=== PATIENT | female | born 1960 | race African-American/Black ===

== ENCOUNTER 2018-05-21 06:53 | Emergency (ER) | payer OTHER ==
[2018-05-21 07:33] LABS: #Basophils 0.1 thou/uL (0.0-0.2); #Eosinphils 0.3 thou/uL (0.0-0.7); #Lymphocytes 1.8 thou/uL (1.20-3.40); #Monocytes 0.9 thou/uL (0.11-0.59); #Neutrophils 5.5 thou/uL (1.40-6.50); %Basophils 0.7 % (0.0-1.0); %Eosinophils 3.6 % (0.0-10.0); %Monocytes 10.8 % (0.0-10.0); %Neutrophils 63.9 % (42.0-75.0); Hemoglobin 14.2 g/dL (12.0-16.0); Mean Corpuscular HGB CONC 31.5 g/dL (32.0-36.0); Mean Corpuscular Hemoglobin 31.3 pg (27.0-31.0); Mean Corpuscular Volume 99.3 fL (78.0-98.0); Mean Platelet Volume 6.8 fL (7.4-10.4); Platelet Count 289 thou/uL (130-400); RBC Distribution Width 12.4 % (11.5-14.5); Red Blood Cell (RBC) Count 4.52 mill/uL (4.20-5.40); White Blood Cell (WBC) Count 8.6 thou/uL (4.8-10.8)
[2018-05-21] MEDS ORDERED: Albuterol Sulfate 2.5 mg/3 ml Neb ONE (07:42)
[2018-05-21 07:58] LABS: ALT (SGPT) 9 U/L (8-55); AST (SGOT) 17 U/L (5-34); Albumin 3.9 g/dL (3.5-5.0); Alkaline Phosphatase 61 U/L (40-150); Anion Gap 15 mmol/L (10-20); BUN (Urea Nitrogen) 6 mg/dL (9.8-20.1); Bilirubin, Total 0.7 mg/dL (0.2-1.2); Calc. Creatinine Clearance 0 mL/min (70-130); Calcium 9.5 mg/dL (7.8-10.44); Carbon Dioxide 22 mmol/L (22-29); Chloride 104 mmol/L (98-107); Estimated GFR-MDRD Greater than 90; Globulin 3.9 g/dL (2.4-3.5); Glucose 103 mg/dL (70-105); Potassium 3.7 mmol/L (3.5-5.1); Protein, Total 7.8 g/dL (6.0-8.3); Sodium 137 mmol/L (136-145)
[2018-05-21] MEDS ORDERED: Acetaminophen 500 MG TAB ONE (08:18)
[2018-05-21] MEDS ORDERED: Ondansetron PF 4 MG/2 ML Vial ONE (08:18)
--- NOTE | 2018-05-21 08:25 | RAD ---
CHEST 1 VIEW: HISTORY: Dyspnea. COMPARISON: 09/24/2016. FINDINGS: Cardiac silhouette is magnified by projection. Pulmonary vasculature is unremarkable. Lungs remain hyperinflated. Scarring at the left base is similar in appearance to the previous exam. No lobar co nsolidation or evidence of pneumothorax. traffic monitor specialist leads overlie the chest. IMPRESSION: Pulmonary hyperinflation and left basilar scarring appear stable. POS: [facility]
[2018-05-21] MEDS ORDERED: predniSONE 20 MG TAB ONE (09:34)
== END 2018-05-21 10:04 | disposition home or self-care (01) ==
LOC: ERS 06:53
DX: J44.9 Chronic obstructive pulmonary disease, unspecified (principal); Z71.6 Tobacco abuse counseling; G43.909 Migraine, unspecified, not intractable, without status migrainosus; F17.210 Nicotine dependence, cigarettes, uncomplicated; Z79.899 Other long term (current) drug therapy
CPT/HCPCS: 36415; 71045; 80053; 85025; 93005; 94640; 96374; 99406; J2405; J7506; J7611; J7620

== ENCOUNTER 2018-05-21 19:15 | Inpatient (IN) | payer OTHER ==
[~2018-05-21 19:15] MED LIST: ISOVUE-370 76%-LOCM 1 ML ONE
[2018-05-21 20:03] LABS: #Lymphocytes 0.7 thou/uL (1.20-3.40); #Monocytes 0.3 thou/uL (0.11-0.59); #Neutrophils 6.2 thou/uL (1.40-6.50); %Basophils 0.2 % (0.0-1.0); %Eosinophils 0.1 % (0.0-10.0); %Lymphocytes 9.6 % (21.0-51.0); %Monocytes 4.5 % (0.0-10.0); %Neutrophils 85.6 % (42.0-75.0); Hemoglobin 13.9 g/dL (12.0-16.0); Mean Corpuscular HGB CONC 33.1 g/dL (32.0-36.0); Mean Corpuscular Hemoglobin 32.3 pg (27.0-31.0); Mean Corpuscular Volume 97.3 fL (78.0-98.0); Mean Platelet Volume 7.4 fL (7.4-10.4); Platelet Count 308 thou/uL (130-400); RBC Distribution Width 12.4 % (11.5-14.5); White Blood Cell (WBC) Count 7.3 thou/uL (4.8-10.8)
[2018-05-21 20:14] LABS: ALT (SGPT) 11 U/L (8-55); AST (SGOT) 19 U/L (5-34); Alkaline Phosphatase 62 U/L (40-150); Anion Gap 20 mmol/L (10-20); BUN (Urea Nitrogen) 7 mg/dL (9.8-20.1); Bilirubin, Total 0.2 mg/dL (0.2-1.2); Calc. Creatinine Clearance 0 mL/min (70-130); Calcium 9.5 mg/dL (7.8-10.44); Carbon Dioxide 14 mmol/L (22-29); Chloride 108 mmol/L (98-107); Estimated GFR-MDRD 87; Globulin 4.1 g/dL (2.4-3.5); Glucose 184 mg/dL (70-105); Potassium 4.1 mmol/L (3.5-5.1); Protein, Total 8.1 g/dL (6.0-8.3); Sodium 138 mmol/L (136-145)
[2018-05-21 20:31] LABS: CKMB 1.4 ng/mL (0-6.6); Troponin I Less than 0.010 ng/mL (< 0.028)
--- NOTE | 2018-05-21 20:38 | RAD ---
PORTABLE CHEST: 05/21/18 HISTORY: Dyspnea. The lungs are clear. No infiltrate or vascular congestion. Heart size is normal. IMPRESSION: No acute abnormality. POS: [facility]
[2018-05-21 20:54] LABS: Actual Bicarbonate (HCO3a) 18.3 mEq/L (22-28); Analyzer IN Cardio ER; Base Excess (BEa) -6.3 mEq/L (-2.0 to +3.0); CO2 Tension 33.4 mmHg (35.0-45.0); Calcium, Ionized 1.16 mmol/L (1.12-1.30); Carboxyhemoglobin (COHb) 2.5 gm% (0.0-3.0); Hemoglobin (Hb) 13.1 g/dL (12.0-16.0); O2 Tension (PaO2) 87.1 mmHg (80.0-100.0); pH, Arterial 7.36 (7.35-7.45)
--- NOTE | 2018-05-21 21:02 | CT ---
CTA CHEST WITH CONTRAST: 05/21/18 Multiple axial tomograms were obtained through the chest following pulmonary angio protocol with mult iplanar reconstructions and 3D postprocessing. INDICATION: Shortness of breath. FINDINGS: The pulmonary arteries show adequate enhancement. No evidence of pulmonary embolus identified. Thorac ic aorta unremarkable. Lung cruz appear clear. There is mild atelectasis in the posterior left lung base. Volume changes of COPD and early bullous changes in the upper lung cruz. Nonspecific hilar l ymph nodes. Images through upper abdomen unremarkable. IMPRESSION: 1. No evidence of pulmonary embolus. 2. Chronic lung parenchymal changes without evidence of focal infiltrate. POS: [facility]
[2018-05-21] MEDS ORDERED: Ondansetron ODT 4 MG TAB ONE (21:22)
[2018-05-21] MEDS ORDERED: Acetaminophen 500 MG TAB ONE (21:22)
[2018-05-21 21:38] LABS: Puncture Site LBA
[2018-05-21] MEDS ORDERED: Senokot S 8.6-50 MG TAB PO PRN (22:43)
[2018-05-21] MEDS ORDERED: Acetaminophen 325 MG TAB PO PRN (22:43)
[2018-05-21] MEDS ORDERED: Vancomycin HCl 1.5 GM in Premix Bag 1 BAG IVPB ONE (22:45)
[2018-05-21] MEDS ORDERED: Vancomycin HCl 1.5 GM in Sodium Chloride 0.9% 250 ML 300 ML IVPB SCH (23:00)
[2018-05-21] MEDS: Sodium Chloride 0.9% 1,000 ML IV SCH (23:44)
--- NOTE | 2018-05-22 00:07 | HP ---
CHIEF COMPLAINT: Shortness of breath. HISTORY OF PRESENT ILLNESS: Patient is a very pleasant 57-year-old female who works in a nursing danay e who presents to the hospital with complaints of shortness of breath. Patient stated that her short ness of breath started about 4 days ago. She initially started with some nasal congestion with some cough; however, today she went to work, checked her oxygen saturations. She was 88% on room air and had a temperature of 102.0. Patient then came into the ER initially, she was given some steroids and also was given some antibiotics and was discharged home. Patient stated that, however, when she got home, she started having chills and started feeling unwell and worsening shortness of breath just by walking from the house to the car, so she came into the hospital for further evaluation. Patient di d undergo a CTA, which was negative for PE, there were just some chronic lung parenchymal changes wit hout any local infiltrates. PAST MEDICAL HISTORY: She has a history of asthma, no diagnosis of COPD. Patient has never had a PF T done. She states that she also has a history of migraines. PAST SURGICAL HISTORY: 1. Patient has had a hysterectomy. 2. Thyroidectomy 3. Appendectomy. 4. Left partial breast mastectomy. SOCIAL HISTORY: Patient denies any alcohol or drug use. She smokes 4 cigarettes a day. Prior to at, she used to smoke a pack a day. Patient has not smoked for the past couple of days. Patient is a FULL CODE. FAMILY HISTORY: No history of heart disease or cancer. REVIEW OF SYSTEMS: All negative except for the ones mentioned above in the HPI. MEDICATIONS: She only takes DuoNebs four or five times a day and also takes rescue inhaler, which is Ventolin. ALLERGIES: She has got allergic to IMITREX. PHYSICAL EXAMINATION. VITAL SIGNS: Temperature was 98.8. She was 96% on 2 liters. Heart rate was in the 110s, blood pres sure was 98/60. GENERAL: She is awake, alert, oriented x3, does not appear in any distress. HEENT: Normocephalic, atraumatic. NECK: No lymphadenopathy noted. CARDIOVASCULAR: S1, S2 present. No murmurs, rubs, or gallops. EXTREMITIES: She has got mild rhonchi all over and mild expiratory wheezing all over. LABORATORY DATA: As of the following: WBC of 7.3, hemoglobin of 13.9, hematocrit 41.8, platelets of 308. Chemistry: Sodium of 138, potassium of 4.1, BUN of 7, creatinine of 0.82. LFTs are normal. Her troponin x1 was negative. She did have a CTA, which was negative for PE. ASSESSMENT AND PLAN: Patient is a very pleasant 57-year-old female who presents to the hospital with complaints of shortness of breath. 1. Acute hypoxemic respiratory failure most likely secondary to possible chronic obstructive pulmona ry disease exacerbation. We will start patient on Solu-Medrol. We will also start patient on some D uoNebs. We will give patient some IV antibiotics. I will broaden her IV antibiotics and add vancomy cecilio, since she works in a [employer]. Patient also has been hypotensive and also she is being resu scitated with fluids. We will continue to monitor. We will also add some steroids as I mentioned minal velazquez. Patient will need PFTs as an outpatient. She has got very hyperinflated lungs. Patient stat es that she has never really had a PFT as outpatient. She will also need a prescribed inhaler on dis charge that she takes daily not just a rescue inhaler. 2. Mild non-anion gap metabolic acidosis. We will continue to monitor. 3. Deep venous thrombosis prophylaxis. We will put patient on sequential compression devices.
[2018-05-22 00:17] VITALS: BMI 18.6
[2018-05-22 05:04] LABS: #Lymphocytes 0.7 thou/uL (1.20-3.40); #Monocytes 0.2 thou/uL (0.11-0.59); #Neutrophils 7.3 thou/uL (1.40-6.50); %Basophils 0.2 % (0.0-1.0); %Eosinophils 0.2 % (0.0-10.0); %Lymphocytes 8.3 % (21.0-51.0); %Monocytes 2.6 % (0.0-10.0); %Neutrophils 88.7 % (42.0-75.0); Hemoglobin 12.3 g/dL (12.0-16.0); Mean Corpuscular HGB CONC 31.9 g/dL (32.0-36.0); Mean Corpuscular Hemoglobin 31.5 pg (27.0-31.0); Mean Corpuscular Volume 98.5 fL (78.0-98.0); Mean Platelet Volume 7.3 fL (7.4-10.4); Platelet Count 297 thou/uL (130-400); RBC Distribution Width 12.4 % (11.5-14.5); Red Blood Cell (RBC) Count 3.92 mill/uL (4.20-5.40); White Blood Cell (WBC) Count 8.2 thou/uL (4.8-10.8)
[2018-05-22 05:18] LABS: Anion Gap 11 mmol/L (10-20); BUN (Urea Nitrogen) 9 mg/dL (9.8-20.1); Calc. Creatinine Clearance 69 mL/min (70-130); Calcium 8.5 mg/dL (7.8-10.44); Carbon Dioxide 19 mmol/L (22-29); Chloride 110 mmol/L (98-107); Estimated GFR-MDRD Greater than 90; Glucose 137 mg/dL (70-105); Potassium 4.3 mmol/L (3.5-5.1); Sodium 136 mmol/L (136-145)
[2018-05-22] MEDS: Sodium Chloride 0.9% 1,000 ML IV SCH ×3 (08:26→20:58)
[2018-05-22] MEDS: Heparin 5,000 UNITS/ML VIAL SC SCH ×3 (08:26→20:57)
[2018-05-22] MEDS: guaiFENesin ER 600 MG TAB PO SCH ×2 (08:26→20:57)
[2018-05-22] MEDS: Ondansetron PF 4 MG/2 ML Vial SLOW IVP PRN ×2 (10:15→18:49)
--- NOTE | 2018-05-22 15:24 | PDOC.PN ---
- Subjective Encounter Start Date: 05/22/18 Encounter Start Time: 10:00 (10) Pt seen for followup re: acute hypoxic respiratory failure. Reports cough, sputum. - Objective Resuscitation Status: Resuscitation Status FULL:Full Resuscitation MAR Reviewed: Yes Vital Signs & Weight: Vital Signs (12 hours) Temp Pulse Resp BP Pulse Ox 05/22/18 13:48 84 16 95 05/22/18 11:42 98.2 F 86 20 131/69 97 05/22/18 10:24 83 16 96 05/22/18 08:00 98 05/22/18 07:29 97.8 F 70 20 128/73 98 05/22/18 06:39 65 18 95 05/22/18 04:00 98.0 F 76 16 128/74 97 Weight Weight 105 lb I&O: 05/21/18 05/22/18 05/23/18 06:59 06:59 06:59 Intake Total 1800 Balance 1800 Result Diagrams: 05/22/18 04:21 05/22/18 04:21 Additional Labs: Labs reviewed by me Phys Exam - Physical Examination Constitutional: NAD HEENT: moist MMs, sclera anicteric, oral pharynx no lesions, 2+ tonsils Neck: no nodes, no JVD, supple, full ROM Respiratory: no rales, no rhonchi, wheezing present Cardiovascular: RRR, no rub S1, S2 Gastrointestinal: soft, non-tender, no distention, positive bowel sounds Neurological: moves all 4 limbs Psychiatric: normal affect, A&O x 3 Dx/Plan (1) Acute respiratory failure with hypoxia Code(s): J96.01 - ACUTE RESPIRATORY FAILURE WITH HYPOXIA Status: Acute Comment: secondary to asthma vs COPD exacerbation vs reactive airways precipitated by viral infection. Pt was never diagnosed with COPD. Continue oxygen, steroids, bronchodilators and antibiotics. (2) Tobacco abuse Code(s): Z72.0 - TOBACCO USE Status: Chronic Comment: pt has been counseled re: tobacco abuse. - Plan continue antibiotics * . Review of Systems - Review of Systems Constitutional: weakness. negative: fever, chills, sweats, malaise Respiratory: Cough, SOB with Excertion, Sputum. negative: Dry, Shortness of Breath, Hemoptysis, Pleuritic Pain, Wheezing Cardiovascular: negative: chest pain, palpitations, orthopnea, paroxysmal nocturnal dyspnea, edema, light headedness Gastrointestinal: negative: Nausea, Vomiting, Abdominal Pain, Diarrhea, Constipation, Melena, Hematochezia Genitourinary: negative: Dysuria, Frequency, Incontinence, Hematuria, Retention Skin: negative: Rash, Lesions, Jasmeet, Bruising - Medications/Allergies Allergies/Adverse Reactions: Allergies Allergy/AdvReac Type Severity Reaction Status Date / Time sumatriptan [From Imitrex] Allergy Mild Hives Verified 05/21/18 23:20 Medications: Current Medications Acetaminophen (Tylenol) 650 mg PO Q4H PRN PRN Reason: Headache/Fever/Mild Pain (1-3) Last Admin: 05/21/18 23:46 Dose: 650 mg Acetaminophen/Codeine Phosphate (Tylenol #3) 1 tab PO Q6H PRN PRN Reason: Pain 4-6 Albuterol/Ipratropium (Duoneb) 3 ml NEB [id number] [facility] Last Admin: 05/22/18 13:48 Dose: 3 ml Benzonatate (Tessalon) 100 mg PO TIDPRN PRN PRN Reason: Cough Guaifenesin (Mucinex) 600 mg PO Q12HR [facility] Last Admin: 05/22/18 08:26 Dose: 600 mg Heparin Sodium (Porcine) (Heparin) 5,000 units SC TID [facility] Last Admin: 05/22/18 14:27 Dose: 5,000 units Sodium Chloride (Normal Saline 0.9%) 1,000 mls @ 100 mls/hr IV .Q10H [facility] Last Admin: 05/22/18 14:26 Dose: 1,000 mls Levofloxacin 500 mg/ Device 100 mls @ 100 mls/hr IVPB Q24HR [facility] Last Admin: 05/21/18 23:44 Dose: 100 mls Methylprednisolone Sodium Succinate (Solu-Medrol) 40 mg IVP DAILY [facility] Last Admin: 05/22/18 08:26 Dose: 40 mg Ondansetron HCl (Zofran) 4 mg SLOW IVP Q6H PRN PRN Reason: Nausea/Vomiting Last Admin: 05/22/18 10:15 Dose: 4 mg Senna/Docusate Sodium (Senokot S) 2 tab PO BIDPRN PRN PRN Reason: Constipation
[2018-05-22] MEDS: Acetaminophen/Codeine 30-300mg Tablet PO PRN ×2 (15:30→22:12)
[2018-05-22] MEDS: Mometasone/Formoterol 120 PUFF INHALER INH SCH (18:44)
[2018-05-22] MEDS: Montelukast Sodium 10 mg Tablet PO SCH (20:57)
[2018-05-22] MEDS: Benzonatate 100 MG CAP PO PRN (21:03)
[2018-05-23] MEDS: Sodium Chloride 0.9% 1,000 ML IV SCH ×3 (01:50→22:39)
[2018-05-23] MEDS: Mometasone/Formoterol 120 PUFF INHALER INH SCH ×2 (06:17→18:13)
[2018-05-23] MEDS: Ondansetron PF 4 MG/2 ML Vial SLOW IVP PRN ×2 (06:36→15:16)
[2018-05-23] MEDS: Acetaminophen/Codeine 30-300mg Tablet PO PRN ×3 (06:36→22:43)
[2018-05-23] MEDS: Montelukast Sodium 10 mg Tablet PO SCH ×2 (09:00→20:03)
[2018-05-23] MEDS: Heparin 5,000 UNITS/ML VIAL SC SCH ×3 (09:00→20:04)
[2018-05-23] MEDS: guaiFENesin ER 600 MG TAB PO SCH ×2 (09:00→20:04)
[2018-05-23 09:22] LABS: #Basophils 0.1 thou/uL (0.0-0.2); #Eosinphils 0.1 thou/uL (0.0-0.7); #Lymphocytes 2.9 thou/uL (1.20-3.40); #Monocytes 0.7 thou/uL (0.11-0.59); #Neutrophils 6.8 thou/uL (1.40-6.50); %Basophils 0.8 % (0.0-1.0); %Eosinophils 1.2 % (0.0-10.0); %Lymphocytes 27.2 % (21.0-51.0); %Monocytes 6.3 % (0.0-10.0); %Neutrophils 64.5 % (42.0-75.0); Hemoglobin 12.3 g/dL (12.0-16.0); Mean Corpuscular HGB CONC 31.7 g/dL (32.0-36.0); Mean Corpuscular Hemoglobin 31.3 pg (27.0-31.0); Mean Corpuscular Volume 98.8 fL (78.0-98.0); Mean Platelet Volume 6.8 fL (7.4-10.4); Platelet Count 307 thou/uL (130-400); RBC Distribution Width 12.4 % (11.5-14.5); Red Blood Cell (RBC) Count 3.93 mill/uL (4.20-5.40); White Blood Cell (WBC) Count 10.5 thou/uL (4.8-10.8)
[2018-05-23 09:41] LABS: Anion Gap 10 mmol/L (10-20); BUN (Urea Nitrogen) 5 mg/dL (9.8-20.1); Calc. Creatinine Clearance 64 mL/min (70-130); Calcium 8.1 mg/dL (7.8-10.44); Carbon Dioxide 25 mmol/L (22-29); Chloride 112 mmol/L (98-107); Estimated GFR-MDRD Greater than 90; Glucose 94 mg/dL (70-105); Sodium 144 mmol/L (136-145)
--- NOTE | 2018-05-23 12:56 | PDOC.PN ---
- Subjective Encounter Start Date: 05/23/18 Encounter Start Time: 09:00 Pt seen for followup re: acute hypoxic respiratory failure. Still coughing, no sputum. - Objective Resuscitation Status: Resuscitation Status FULL:Full Resuscitation MAR Reviewed: Yes Vital Signs & Weight: Vital Signs (12 hours) Temp Pulse Resp BP BP Pulse Ox 05/23/18 09:33 83 16 95 05/23/18 08:00 95 05/23/18 07:17 98 F 84 19 138/85 92 L 05/23/18 06:17 74 18 95 05/23/18 06:15 74 18 95 05/23/18 04:00 98.1 F 74 20 116/78 92 L 05/23/18 02:29 66 16 95 Weight Weight 105 lb I&O: 05/22/18 05/23/18 05/24/18 06:59 06:59 06:59 Intake Total 1800 2079 Output Total 30 Balance 1800 2049 Result Diagrams: 05/23/18 09:07 05/23/18 09:07 Additional Labs: Labs reviewed by me Phys Exam - Physical Examination Constitutional: NAD HEENT: moist MMs, sclera anicteric, oral pharynx no lesions, 2+ tonsils Neck: no nodes, no JVD, supple, full ROM Respiratory: no rales, no rhonchi, wheezing present Cardiovascular: RRR, no rub Gastrointestinal: soft, non-tender, no distention, positive bowel sounds Neurological: moves all 4 limbs Psychiatric: normal affect, A&O x 3 Dx/Plan (1) Acute respiratory failure with hypoxia Code(s): J96.01 - ACUTE RESPIRATORY FAILURE WITH HYPOXIA Status: Acute Comment: secondary to reactive airways precipitated by rhinovirus infection. Continue oxygen, steroids, bronchodilators and antibiotics. (2) Hypokalemia Code(s): E87.6 - HYPOKALEMIA Status: Acute Comment: replace potassium (3) Tobacco abuse Code(s): Z72.0 - TOBACCO USE Status: Chronic - Plan * . Review of Systems - Review of Systems Constitutional: weakness. negative: fever, chills, sweats, malaise Respiratory: Cough, Dry, Wheezing. negative: Shortness of Breath, Hemoptysis, SOB with Excertion, Pleuritic Pain, Sputum Cardiovascular: negative: chest pain, palpitations, orthopnea, paroxysmal nocturnal dyspnea, edema, light headedness Gastrointestinal: negative: Nausea, Vomiting, Abdominal Pain, Diarrhea, Constipation, Melena, Hematochezia Genitourinary: negative: Dysuria, Frequency, Incontinence, Hematuria, Retention Skin: negative: Rash, Lesions, Jasmeet, Bruising - Medications/Allergies Allergies/Adverse Reactions: Allergies Allergy/AdvReac Type Severity Reaction Status Date / Time sumatriptan [From Imitrex] Allergy Mild Hives Verified 05/21/18 23:20 cucumber Allergy Hives Verified 05/23/18 12:58 Medications: Current Medications Acetaminophen (Tylenol) 650 mg PO Q4H PRN PRN Reason: Headache/Fever/Mild Pain (1-3) Last Admin: 05/21/18 23:46 Dose: 650 mg Acetaminophen/Codeine Phosphate (Tylenol #3) 1 tab PO Q6H PRN PRN Reason: Pain 4-6 Last Admin: 05/23/18 06:36 Dose: 1 tab Albuterol/Ipratropium (Duoneb) 3 ml NEB [id number] [facility] Last Admin: 05/23/18 09:33 Dose: 3 ml Benzonatate (Tessalon) 100 mg PO TIDPRN PRN PRN Reason: Cough Last Admin: 05/22/18 21:03 Dose: 100 mg Guaifenesin (Mucinex) 600 mg PO Q12HR [facility] Last Admin: 05/23/18 09:00 Dose: 600 mg Heparin Sodium (Porcine) (Heparin) 5,000 units SC TID [facility] Last Admin: 05/23/18 09:00 Dose: 5,000 units Sodium Chloride (Normal Saline 0.9%) 1,000 mls @ 100 mls/hr IV .Q10H [facility] Last Admin: 05/23/18 01:50 Dose: 1,000 mls Levofloxacin 500 mg/ Device 100 mls @ 100 mls/hr IVPB Q24HR [facility] Last Admin: 05/22/18 22:12 Dose: 100 mls Methylprednisolone Sodium Succinate (Solu-Medrol) 40 mg IVP DAILY [facility] Last Admin: 05/23/18 09:00 Dose: 40 mg Mometasone Furoate/Formoterol Fumar (Dulera 200 Mcg/5 Mcg Inhaler) 2 puff INH BID-RT [facility] Last Admin: 05/23/18 06:17 Dose: 2 puff Montelukast Sodium (Singulair) 10 mg PO BID [facility] Last Admin: 05/23/18 09:00 Dose: 10 mg Ondansetron HCl (Zofran) 4 mg SLOW IVP Q6H PRN PRN Reason: Nausea/Vomiting Last Admin: 05/23/18 06:36 Dose: 4 mg Senna/Docusate Sodium (Senokot S) 2 tab PO BIDPRN PRN PRN Reason: Constipation
[2018-05-23] MEDS: Benzonatate 100 MG CAP PO PRN (22:43)
[2018-05-24 06:33] LABS: #Basophils 0.1 thou/uL (0.0-0.2); #Eosinphils 0.1 thou/uL (0.0-0.7); #Lymphocytes 3.4 thou/uL (1.20-3.40); #Monocytes 0.7 thou/uL (0.11-0.59); %Basophils 1.2 % (0.0-1.0); %Eosinophils 0.9 % (0.0-10.0); %Lymphocytes 32.7 % (21.0-51.0); %Monocytes 6.8 % (0.0-10.0); %Neutrophils 58.4 % (42.0-75.0); Hemoglobin 11.6 g/dL (12.0-16.0); Mean Corpuscular HGB CONC 32.6 g/dL (32.0-36.0); Mean Corpuscular Hemoglobin 31.9 pg (27.0-31.0); Mean Corpuscular Volume 97.8 fL (78.0-98.0); Mean Platelet Volume 7.5 fL (7.4-10.4); Platelet Count 312 thou/uL (130-400); RBC Distribution Width 12.3 % (11.5-14.5); Red Blood Cell (RBC) Count 3.64 mill/uL (4.20-5.40); White Blood Cell (WBC) Count 10.3 thou/uL (4.8-10.8)
[2018-05-24 06:46] LABS: Anion Gap 9 mmol/L (10-20); BUN (Urea Nitrogen) 6 mg/dL (9.8-20.1); Calc. Creatinine Clearance 67 mL/min (70-130); Calcium 8.4 mg/dL (7.8-10.44); Carbon Dioxide 24 mmol/L (22-29); Chloride 111 mmol/L (98-107); Estimated GFR-MDRD Greater than 90; Glucose 85 mg/dL (70-105); Potassium 3.4 mmol/L (3.5-5.1); Sodium 141 mmol/L (136-145)
[2018-05-24] MEDS: Mometasone/Formoterol 120 PUFF INHALER INH SCH ×2 (07:24→18:47)
[2018-05-24] MEDS: guaiFENesin ER 600 MG TAB PO SCH ×2 (08:42→20:04)
[2018-05-24] MEDS: Montelukast Sodium 10 mg Tablet PO SCH ×2 (08:42→20:04)
[2018-05-24] MEDS: Acetaminophen/Codeine 30-300mg Tablet PO PRN ×3 (08:42→23:53)
[2018-05-24] MEDS: Heparin 5,000 UNITS/ML VIAL SC SCH ×3 (08:42→20:04)
[2018-05-24] MEDS ORDERED: Potassium Chloride 20 MEQ TAB PO SCH (09:15)
[2018-05-24] MEDS: Sodium Chloride 0.9% 1,000 ML IV SCH ×3 (10:14→22:34)
[2018-05-24] MEDS: Ondansetron PF 4 MG/2 ML Vial SLOW IVP PRN (13:17)
--- NOTE | 2018-05-24 14:06 | PDOC.PN ---
- Subjective Encounter Start Date: 05/24/18 Encounter Start Time: 09:20 Pt seen for followup re: acute hypoxic respiratory failure. Feels better. Cough+. No fevers - Objective Resuscitation Status: Resuscitation Status FULL:Full Resuscitation Vital Signs & Weight: Vital Signs (12 hours) Temp Pulse Resp BP Pulse Ox 05/24/18 13:40 69 16 93 L 05/24/18 10:09 64 16 92 L 05/24/18 08:00 92 L 05/24/18 07:30 97.7 F 64 20 143/84 H 05/24/18 07:24 76 16 94 L 05/24/18 07:21 76 18 94 L Weight Admit Weight 105 lb Weight 105 lb I&O: 05/23/18 05/24/18 05/25/18 06:59 06:59 06:59 Intake Total 2079 Output Total Balance 2049 Result Diagrams: 05/25/18 04:45 05/25/18 04:45 Phys Exam - Physical Examination Constitutional: NAD HEENT: moist MMs Neck: supple Respiratory: wheezing present Cardiovascular: RRR Gastrointestinal: soft Neurological: moves all 4 limbs Psychiatric: normal affect Dx/Plan (1) Acute respiratory failure with hypoxia Code(s): J96.01 - ACUTE RESPIRATORY FAILURE WITH HYPOXIA Status: Acute Comment: Continue oxygen, steroids, bronchodilators and antibiotics. (2) Hypokalemia Code(s): E87.6 - HYPOKALEMIA Status: Acute Comment: replace potassium (3) Tobacco abuse Code(s): Z72.0 - TOBACCO USE Status: Chronic Comment: counseled re: tobacco cessation - Plan * . Review of Systems - Review of Systems Constitutional: negative: fever, chills, sweats, weakness, malaise Respiratory: Cough, Dry, Wheezing. negative: Shortness of Breath, Hemoptysis, SOB with Excertion, Pleuritic Pain, Sputum - Medications/Allergies Allergies/Adverse Reactions: Allergies Allergy/AdvReac Type Severity Reaction Status Date / Time sumatriptan [From Imitrex] Allergy Mild Hives Verified 05/21/18 23:20 cucumber Allergy Hives Verified 05/23/18 12:58 Medications: Current Medications Acetaminophen (Tylenol) 650 mg PO Q4H PRN PRN Reason: Headache/Fever/Mild Pain (1-3) Last Admin: 05/21/18 23:46 Dose: 650 mg Acetaminophen/Codeine Phosphate (Tylenol #3) 1 tab PO Q6H PRN PRN Reason: Pain 4-6 Last Admin: 05/24/18 08:42 Dose: 1 tab Albuterol/Ipratropium (Duoneb) 3 ml NEB [id number] [facility] Last Admin: 05/24/18 13:40 Dose: 3 ml Benzonatate (Tessalon) 100 mg PO TIDPRN PRN PRN Reason: Cough Last Admin: 05/23/18 22:43 Dose: 100 mg Guaifenesin (Mucinex) 600 mg PO Q12HR [facility] Last Admin: 05/24/18 08:42 Dose: 600 mg Heparin Sodium (Porcine) (Heparin) 5,000 units SC TID [facility] Last Admin: 05/24/18 08:42 Dose: 5,000 units Sodium Chloride (Normal Saline 0.9%) 1,000 mls @ 100 mls/hr IV .Q10H [facility] Last Admin: 05/24/18 13:15 Dose: Not Given Levofloxacin 500 mg/ Device 100 mls @ 100 mls/hr IVPB Q24HR [facility] Last Admin: 05/23/18 22:40 Dose: 100 mls Methylprednisolone Sodium Succinate (Solu-Medrol) 40 mg IVP DAILY [facility] Last Admin: 05/24/18 08:42 Dose: 40 mg Mometasone Furoate/Formoterol Fumar (Dulera 200 Mcg/5 Mcg Inhaler) 2 puff INH BID-RT [facility] Last Admin: 05/24/18 07:24 Dose: 2 puff Montelukast Sodium (Singulair) 10 mg PO BID [facility] Last Admin: 05/24/18 08:42 Dose: 10 mg Ondansetron HCl (Zofran) 4 mg SLOW IVP Q6H PRN PRN Reason: Nausea/Vomiting Last Admin: 05/24/18 13:17 Dose: 4 mg Senna/Docusate Sodium (Senokot S) 2 tab PO BIDPRN PRN PRN Reason: Constipation
[2018-05-24] MEDS: Benzonatate 100 MG CAP PO PRN (23:53)
[2018-05-25 05:20] LABS: #Eosinphils 0.1 thou/uL (0.0-0.7); #Monocytes 0.9 thou/uL (0.11-0.59); #Neutrophils 5.2 thou/uL (1.40-6.50); %Eosinophils 1.3 % (0.0-10.0); %Lymphocytes 38.9 % (21.0-51.0); %Monocytes 8.4 % (0.0-10.0); %Neutrophils 51.3 % (42.0-75.0); Hemoglobin 12.3 g/dL (12.0-16.0); Mean Corpuscular HGB CONC 33.1 g/dL (32.0-36.0); Mean Corpuscular Hemoglobin 32.4 pg (27.0-31.0); Mean Corpuscular Volume 97.9 fL (78.0-98.0); Mean Platelet Volume 6.9 fL (7.4-10.4); Platelet Count 332 thou/uL (130-400); RBC Distribution Width 12.3 % (11.5-14.5); Red Blood Cell (RBC) Count 3.78 mill/uL (4.20-5.40); White Blood Cell (WBC) Count 10.2 thou/uL (4.8-10.8)
[2018-05-25 05:34] LABS: Anion Gap 12 mmol/L (10-20); BUN (Urea Nitrogen) 6 mg/dL (9.8-20.1); Calc. Creatinine Clearance 63 mL/min (70-130); Calcium 8.6 mg/dL (7.8-10.44); Carbon Dioxide 23 mmol/L (22-29); Chloride 110 mmol/L (98-107); Estimated GFR-MDRD Greater than 90; Glucose 95 mg/dL (70-105); Potassium 3.6 mmol/L (3.5-5.1); Sodium 141 mmol/L (136-145)
[2018-05-25] MEDS: Mometasone/Formoterol 120 PUFF INHALER INH SCH (06:04)
[2018-05-25] MEDS: Sodium Chloride 0.9% 1,000 ML IV SCH (08:43)
[2018-05-25] MEDS: guaiFENesin ER 600 MG TAB PO SCH (08:44)
[2018-05-25] MEDS: Heparin 5,000 UNITS/ML VIAL SC SCH ×2 (08:44→15:39)
[2018-05-25] MEDS: Acetaminophen/Codeine 30-300mg Tablet PO PRN (08:44)
[2018-05-25] MEDS: Montelukast Sodium 10 mg Tablet PO SCH (08:44)
[2018-05-25] MEDS: Ondansetron PF 4 MG/2 ML Vial SLOW IVP PRN (08:45)
[2018-05-25 15:34] VITALS: BP 117/71; TEMP 98.6
--- NOTE | 2018-05-25 22:27 | DIS ---
PRIMARY CARE PROVIDER: Bhargavi Aparicio M.D. DATE OF ADMISSION: 05/21/2018 DATE OF DISCHARGE: 05/25/2018 DISCHARGE DIAGNOSES: 1. Acute hypoxic respiratory failure. 2. Rhinovirus infection. 3. Reactive airways disease. 4. Hypokalemia. CONDITION OF PATIENT ON THE DAY OF DISCHARGE: Stable. I assessed Ms. Boston on the day of discharge. She denies any chest pain or shortness of breath. Vital signs are stable. S1 and S2 are heard, re gular. Lungs are clear to auscultation bilaterally. DISCHARGE MEDICATIONS: Medrol Dosepak, Advair Diskus 250/50 one puff 2 times a day, DuoNebs 3 mL belkis ry 6 hours as needed, Singulair 10 mg 2 times a day, levofloxacin 500 mg daily for 5 more days. HOSPITAL COURSE: Ms. Boston is a pleasant 57-year-old lady, who was admitted to [facility] on 05/21/2018. Please refer to Dr. Palomares's history and physical note dated 05/21/2018 for further details. She was started on antibiotics for suspected upper respiratory tract infection. She was found to have rhinovirus infection on the NAAT panel. She improved with oxygen, steroids, bronchodilators and antibiotics. She is being discharged home in a stable condition. She has been a dvised to return to work on 05/29/2018 as tolerated. On the day of discharge, she has sodium 141, potassium 3.6, creatinine 0.75, white count 10,200, hemo globin 12.3, and platelet count 332,000. Many thanks for allowing me to participate in your patient's care. Please feel free to contact me wi th any questions or concerns. DISCHARGE DESTINATION: Home. TOTAL AMOUNT OF TIME SPENT COORDINATING THIS DISCHARGE: 33 minutes.
== END 2018-05-25 15:01 | disposition home or self-care (01) | DRG 189 ==
LOC: ERS 19:15 → T4-B 21:14
PROVIDERS: ADMIT Internal Medicine; ATTEND Internal Medicine
DX: J96.01 Acute respiratory failure with hypoxia (principal); J44.1 Chronic obstructive pulmonary disease with (acute) exacerbation; E87.2 Acidosis; J45.909 Unspecified asthma, uncomplicated; Z90.12 Acquired absence of left breast and nipple; F17.210 Nicotine dependence, cigarettes, uncomplicated; E89.0 Postprocedural hypothyroidism; B97.89 Other viral agents as the cause of diseases classified elsewhere; J06.9 Acute upper respiratory infection, unspecified; E87.6 Hypokalemia
CPT/HCPCS: 36415; 71045; 71275; 80048; 82553; 82805; 83880; 84484; 85025; 85379; 87633; 87798; 87804; 93005; 94640; 96360; 96361; 99406; J1644; J1956; J2405; J2920; J3370; J7050; J7620; Q0162

== ENCOUNTER 2018-10-30 22:47 | Observation (INO) | payer OTHER, SELFPAY ==
[2018-10-30 23:20] LABS: #Basophils 0.1 thou/uL (0.0-0.2); #Eosinphils 0.5 thou/uL (0.0-0.7); #Lymphocytes 2.5 thou/uL (1.20-3.40); #Monocytes 0.8 thou/uL (0.11-0.59); #Neutrophils 5.1 thou/uL (1.40-6.50); %Basophils 1.1 % (0.0-1.0); %Eosinophils 6.1 % (0.0-10.0); %Lymphocytes 27.5 % (21.0-51.0); %Monocytes 8.5 % (0.0-10.0); %Neutrophils 56.8 % (42.0-75.0); Hemoglobin 14.7 g/dL (12.0-16.0); Mean Corpuscular HGB CONC 34.5 g/dL (32.0-36.0); Mean Corpuscular Hemoglobin 32.6 pg (27.0-31.0); Mean Corpuscular Volume 94.5 fL (78.0-98.0); Mean Platelet Volume 7.2 fL (7.4-10.4); Platelet Count 260 thou/uL (130-400); RBC Distribution Width 12.6 % (11.5-14.5); Red Blood Cell (RBC) Count 4.52 mill/uL (4.20-5.40)
--- NOTE | 2018-10-30 23:30 | RAD ---
RADIOGRAPH CHEST ONE VIEW: DATE: 10/30/2018 HISTORY: 57-year-old female with dyspnea FINDINGS: There are no airspace densities, pulmonary edema, pneumothorax, or cardiomegaly. The lateral costophr enic angles are sharp. IMPRESSION: No acute cardiopulmonary findings.
[2018-10-30] MEDS ORDERED: Ketorolac Tromethamine 30 MG/ML VIAL ONE (23:33)
[2018-10-30] MEDS ORDERED: methylPREDNISolone Sod Succ/PF 125 MG/2 ML VIAL ONE (23:33)
[2018-10-30 23:40] LABS: ALT (SGPT) 10 U/L (8-55); AST (SGOT) 21 U/L (5-34); Albumin 4.4 g/dL (3.5-5.0); Alkaline Phosphatase 68 U/L (40-150); Anion Gap 15 mmol/L (10-20); BUN (Urea Nitrogen) 11 mg/dL (9.8-20.1); Bilirubin, Total 0.4 mg/dL (0.2-1.2); Calc. Creatinine Clearance 0 mL/min (70-130); Calcium 9.7 mg/dL (7.8-10.44); Carbon Dioxide 18 mmol/L (22-29); Chloride 108 mmol/L (98-107); Estimated GFR-MDRD Greater than 90; Globulin 3.9 g/dL (2.4-3.5); Glucose 87 mg/dL (70-105); Potassium 3.8 mmol/L (3.5-5.1); Protein, Total 8.3 g/dL (6.0-8.3); Sodium 137 mmol/L (136-145)
[2018-10-30] MEDS ORDERED: Albuterol Sulfate 2.5 mg/3 ml Neb ONE (23:49)
[2018-10-31] MEDS ORDERED: Levofloxacin 500 mg/D5W 100 ml Premix Bag ONE (00:01)
[2018-10-31] MEDS ORDERED: Ondansetron PF 4 MG/2 ML Vial ONE (00:36)
[2018-10-31] MEDS ORDERED: Sodium Chloride 0.9% 1,000 ML IV SCH (02:00)
[2018-10-31] MEDS ORDERED: Ondansetron ODT 4 MG TAB SL PRN (02:00)
[2018-10-31] MEDS ORDERED: Ondansetron PF 4 MG/2 ML Vial IVP PRN (02:00)
[2018-10-31] MEDS ORDERED: Acetaminophen 325 MG TAB PO PRN ×2 (02:00→02:45)
[2018-10-31] MEDS ORDERED: Calcium Carbonate 500 MG ChewTAB PO PRN (02:45)
[2018-10-31] MEDS ORDERED: HYDROcodone/Acetaminophen 5/325 mg Tablet PO PRN (02:45)
[2018-10-31] MEDS ORDERED: Loperamide HCl 2 MG CAP PO PRN (02:45)
[2018-10-31] MEDS ORDERED: Senokot S 8.6-50 MG TAB PO PRN (02:45)
[2018-10-31] MEDS ORDERED: Bisacodyl 10 MG SUPP PR PRN (02:45)
[2018-10-31 02:48] VITALS: BMI 19.5
[2018-10-31 03:04] LABS: Troponin I Less than 0.010 ng/mL (< 0.028)
--- NOTE | 2018-10-31 03:38 | HP ---
PRIMARY CARE PHYSICIAN: Teresa Carmichael. REASON FOR ADMISSION: Asthma/COPD exacerbation. HISTORY OF PRESENT ILLNESS: A 57-year-old female, who has underlying history of asthma/COPD, who presented to emergency room with increasing shortness of breath and wheezing. The patient was using her home medication inhaler as well as rescue inhaler without any significant improvement. She decided to come to emergency room for evaluation. She denies any fevers. She denies any cough, or productive sputum. She denies any chest pain, or palpitation, but she was feeling some chest tightness because of shortness of breath. In the emergency room, the patient was appeared mild respiratory distress and she was given antibiotic therapy, levofloxacin, Solu-Medrol 125 mg, Toradol 15 mg, DuoNeb therapy several times and IV fluid. Subsequently, she was admitted to medical floor for observation. When I saw this patient, she was on room air and she was not actively wheezing and she was able to talk in full sentence. She is under observation status. On admission, she was on room air and she was not hypoxic. She denies any recent travel. She denies any sick exposure. She denies any flu-like illness. She denies any upper respiratory viral infection. She denies any UTI symptoms. She denies any constipation, diarrhea, melena, or hematochezia. REVIEW OF SYSTEMS: CONSTITUTIONAL: Negative for weight loss or gain, ability to conduct usual activities. SKIN: Negative for rash, itching. EYES: Negative for double vision, pain. ENT/MOUTH: Negative for nose bleeding, neck stiffness, pain, tenderness. CARDIOVASCULAR: Negative for palpitations, dyspnea on exertion, orthopnea. RESPIRATORY: Negative for shortness of breath, wheezing, cough, hemoptysis, fever or night sweats. GASTROINTESTINAL: Negative for poor appetite, abdominal pain, heartburn, nausea, vomiting, constipation, or diarrhea. GENITOURINARY: Negative for urgency, frequency, dysuria, nocturia. MUSCULOSKELETAL: Negative for pain, swelling. NEUROLOGIC/PSYCHIATRIC: Negative for anxiety, depression. ALLERGY/IMMUNOLOGIC: Negative for skin rash, bleeding tendency. Please see my HPI for pertinent positives and negatives. All other review of systems reviewed and negative except as mentioned in HPI. PAST MEDICAL HISTORY: COPD/asthma, tobacco abuse disorder, and migraine headache. PAST SURGICAL HISTORY: Hysterectomy, thyroidectomy, appendicectomy, left partial breast mastectomy. PAST PSYCHIATRIC HISTORY: Reviewed and negative. SOCIAL HISTORY: The patient is smoking about 4 cigarettes a day. She denies any illicit drug abuse or alcohol abuse. She is trying to cut down her smoking. FAMILY HISTORY: No strong family history of premature coronary artery disease, stroke, or cancer. CURRENT HOME MEDICATIONS: 1. Advair Diskus 250/50 one inhalation b.i.d. 2. Singulair 10 mg daily. 3. DuoNeb q.6 hourly. ALLERGIES: THE PATIENT IS ALLERGIC TO IMITREX. EMERGENCY ROOM COURSE: The patient has received Zofran, levofloxacin, albuterol nebulization, DuoNeb nebulization, Toradol 15 mg, Solu-Medrol 125 mg and IV fluid. PHYSICAL EXAMINATION: VITAL SIGNS: Currently, blood pressure 131/85, pulse 102, respiratory rate 28 on admission, temperature 97.9, saturation 94% on room air. Weight 47 kg. GENERAL: The patient is currently alert, awake, no obvious acute distress. HEENT: Head; normocephalic, atraumatic. Eyes; pupils round, reactive to light. Extraocular muscle intact. ENT, oropharynx within normal limits. Moist mucous membranes. No oral lesion. No pharyngeal erythema. No exudate. NECK: Supple. No JVD. No thyromegaly. No carotid bruit. No jugular venous distention. LUNGS: Bilateral wheezing heard. Air entry reduced. No accessory muscles of respiration in use. CARDIAC: S1, S2 regular. No murmur. No gallop. No rub. ABDOMEN: Soft. Bowel sounds present. Nontender. Nondistended. No organomegaly. No mass. No suprapubic tenderness. BACK: Unremarkable. No CVA tenderness. EXTREMITIES: Upper extremities, passive movement of all joints are normal. Lower extremities, no edema. Good distal pulsation. SKIN: No skin rash. HEMATOLOGICAL SYSTEM: No lymphadenopathy. NEUROLOGIC: Nonfocal examination. SIGNIFICANT LABORATORY DATA: CBC; WBC 9.0, hemoglobin 14.7, and platelet 260. BMP; sodium 137, potassium 3.8, chloride 108, carbon dioxide 18, anion gap 15, BUN 11, creatinine 0.75, glucose 87, calcium 9.7. LFT; AST 21, ALT 10, alkaline phosphatase 68, and albumin 4.4. Cardiac enzyme negative x2. Lactic acid 1.8, albumin 4.4. Chest x-ray, COPD changes without any acute process. ASSESSMENT AND PLAN: 1. Chronic obstructive pulmonary disease/asthma exacerbation. This patient's chest x-ray is consistent with emphysema. She has mild to moderate flare up. The patient will be treated with DuoNeb therapy every 4 hourly, Dulera 2 puffs inhalation b.i.d., Solu-Medrol 40 mg IV q.6 hourly, Levaquin 500 mg IV daily and Mucinex 600 mg twice daily, Singulair 10 mg p.o. daily. We will monitor clinical response. We will watch her for 24 hours. We are expecting that within 24 to 48 hours, the patient will be in her normal level and we will be able to discharge her home. 2. Tobacco abuse disorder. Smoking cessation counseling given. Healthy lifestyle measure discussed with the patient. 3. Mild protein calorie malnutrition. The patient will be given nutritional supplement with Ensure t.i.d. 4. Deep venous thrombosis prophylaxis not needed because we are expecting discharge in 24 to 48 hours. 5. Gastrointestinal prophylaxis, Pepcid 20 mg p.o. b.i.d. CODE STATUS: The patient is full code. The patient does not have any surrogate decision maker. She is making her own decision. DISPOSITION PLAN: As mentioned above, the patient will be discharged in 24 to 48 hours. Plan of care discussed with the patient in detail. Job ID: [id number]
[2018-10-31 05:48] LABS: #Basophils 0.1 thou/uL (0.0-0.2); #Lymphocytes 0.2 thou/uL (1.20-3.40); #Monocytes 0.1 thou/uL (0.11-0.59); #Neutrophils 7.2 thou/uL (1.40-6.50); %Eosinophils 0.1 % (0.0-10.0); %Monocytes 1.1 % (0.0-10.0); %Neutrophils 94.8 % (42.0-75.0); Hemoglobin 12.6 g/dL (12.0-16.0); Mean Corpuscular HGB CONC 32.9 g/dL (32.0-36.0); Mean Corpuscular Hemoglobin 31.6 pg (27.0-31.0); Mean Corpuscular Volume 95.9 fL (78.0-98.0); Mean Platelet Volume 7.1 fL (7.4-10.4); Platelet Count 240 thou/uL (130-400); RBC Distribution Width 12.6 % (11.5-14.5); White Blood Cell (WBC) Count 7.6 thou/uL (4.8-10.8)
[2018-10-31 06:22] LABS: Anion Gap 14 mmol/L (10-20); BUN (Urea Nitrogen) 11 mg/dL (9.8-20.1); Calc. Creatinine Clearance 64 mL/min (70-130); Calcium 8.4 mg/dL (7.8-10.44); Carbon Dioxide 16 mmol/L (22-29); Chloride 109 mmol/L (98-107); Estimated GFR-MDRD Greater than 90; Glucose 146 mg/dL (70-105); Potassium 3.5 mmol/L (3.5-5.1); Sodium 135 mmol/L (136-145)
[2018-10-31] MEDS: methylPREDNISolone Sod Succ 40 MG VIAL IVP SCH ×3 (06:25→18:27)
[2018-10-31 06:29] LABS: Troponin I Less than 0.010 ng/mL (< 0.028)
[2018-10-31] MEDS ORDERED: Famotidine 20 MG TAB PO SCH (09:00)
[2018-10-31] MEDS ORDERED: predniSONE 20 MG TAB PO SCH (09:00)
[2018-10-31] MEDS ORDERED: guaiFENesin ER 600 MG TAB PO SCH (09:00)
[2018-10-31] MEDS ORDERED: Doxycycline 100 MG CAP PO SCH (09:00)
[2018-10-31] MEDS: Mometasone/Formoterol 120 PUFF INHALER INH SCH ×2 (10:27→19:15)
[2018-10-31 17:18] VITALS: BP 136/81; TEMP 98.3
[2018-10-31] MEDS ORDERED: Montelukast Sodium 10 mg Tablet PO SCH (21:00)
--- NOTE | 2018-11-01 10:16 | DIS ---
DATE OF ADMISSION: 10/31/2018 DATE OF DISCHARGE: 10/31/2018 DISCHARGE DISPOSITION: Home. FOLLOWUP: Follow up with primary care physician at [facility] in 1 week. ALLERGIES: THE PATIENT IS ALLERGIC TO SUMATRIPTAN. BRIEF HOSPITAL COURSE: The patient is a 57-year-old female with asthma/COPD, presented to the hospital with significant shortness of breath and wheezing. Her workup was consistent with asthma exacerbation. She was started on IV antibiotics along with steroids, Mucinex, and nebulizer treatment with good improvement. She was extensively counseled to quit smoking. She is currently on room air. Wheezing has significantly improved. The patient ambulated in the hallway without significant shortness of breath. She appears stable for discharge. Chest x-ray was negative for infiltrate. FINAL DIAGNOSES: 1. Chronic obstructive pulmonary disease/asthma exacerbation. 2. Tobacco dependence. 3. Hyponatremia at 135. 4. Mild metabolic acidosis. 5. Mild protein calorie malnutrition. 6. History of migraine headaches. PLAN: Plan of care was discussed with the patient in detail. She stated understanding. Job ID: [id number]
== END 2018-10-31 18:45 | disposition home or self-care (01) ==
LOC: ERS 22:47 → SURG B 10-31 01:37
PROVIDERS: ADMIT Internal Medicine; ATTEND Internal Medicine
DX: J44.1 Chronic obstructive pulmonary disease with (acute) exacerbation (principal); F17.210 Nicotine dependence, cigarettes, uncomplicated; E87.1 Hypo-osmolality and hyponatremia; E87.2 Acidosis; E44.1 Mild protein-calorie malnutrition; Z68.1 Body mass index [BMI] 19.9 or less, adult; Z79.899 Other long term (current) drug therapy; Z79.51 Long term (current) use of inhaled steroids; Z88.8 Allergy status to other drugs, medicaments and biological substances
CPT/HCPCS: 36415; 71045; 80048; 80053; 83605; 84484; 85025; 93005; 94640; 94664; 96361; 96365; 96375; 96376; G0378; J1885; J1956; J2405; J2920; J2930; J7611; J7620; Q0162

== ENCOUNTER 2019-01-31 18:57 | Emergency (ER) | payer SELFPAY ==
[2019-01-31 19:48] LABS: #Basophils 0.1 thou/uL (0.0-0.2); #Eosinphils 0.5 thou/uL (0.0-0.7); #Lymphocytes 2.5 thou/uL (1.20-3.40); #Monocytes 0.8 thou/uL (0.11-0.59); #Neutrophils 3.6 thou/uL (1.40-6.50); %Basophils 1.1 % (0.0-1.0); %Eosinophils 6.6 % (0.0-10.0); %Lymphocytes 33.3 % (21.0-51.0); %Monocytes 10.4 % (0.0-10.0); %Neutrophils 48.7 % (42.0-75.0); Hemoglobin 13.4 g/dL (12.0-16.0); Mean Corpuscular HGB CONC 32.9 g/dL (32.0-36.0); Mean Corpuscular Volume 97.4 fL (78.0-98.0); Mean Platelet Volume 7.3 fL (7.4-10.4); Platelet Count 245 thou/uL (130-400); RBC Distribution Width 12.3 % (11.5-14.5); Red Blood Cell (RBC) Count 4.19 mill/uL (4.20-5.40); White Blood Cell (WBC) Count 7.5 thou/uL (4.8-10.8)
--- NOTE | 2019-01-31 19:48 | RAD ---
EXAM: 01/31/19 HISTORY: Chest one view. HISTORY: Shortness of breath. Asthma. FINDINGS: Heart size is within normal limits. The lungs are clear. No pneumonia, edema, pleural effusion or oth er acute process. IMPRESSION: No acute intrathoracic disease. Stable from prior study. POS: [facility]
[2019-01-31 20:09] LABS: ALT (SGPT) Less than 7 U/L (8-55); AST (SGOT) 18 U/L (5-34); Alkaline Phosphatase 63 U/L (40-150); Anion Gap 15 mmol/L (10-20); BUN (Urea Nitrogen) 9 mg/dL (9.8-20.1); Bilirubin, Total 0.3 mg/dL (0.2-1.2); CK (CPK) 117 U/L (29-168); Calc. Creatinine Clearance 0 mL/min (70-130); Calcium 9.1 mg/dL (7.8-10.44); Carbon Dioxide 20 mmol/L (22-29); Chloride 109 mmol/L (98-107); Estimated GFR-MDRD Greater than 90; Glucose 108 mg/dL (70-105); Potassium 3.6 mmol/L (3.5-5.1); Sodium 140 mmol/L (136-145)
[2019-01-31] MEDS ORDERED: methylPREDNISolone Sod Succ/PF 125 MG/2 ML VIAL ONE (20:48)
[2019-01-31] MEDS ORDERED: Acetaminophen 500 MG TAB ONE (20:55)
== END 2019-01-31 22:10 | disposition home or self-care (01) ==
LOC: ERS 18:57
DX: J45.901 Unspecified asthma with (acute) exacerbation (principal); J44.9 Chronic obstructive pulmonary disease, unspecified; Z71.6 Tobacco abuse counseling; F17.210 Nicotine dependence, cigarettes, uncomplicated; Z79.51 Long term (current) use of inhaled steroids
CPT/HCPCS: 36415; 71045; 80053; 82550; 83880; 84484; 85025; 93005; 94640; 96374; 99406; J2930; J7620

== ENCOUNTER 2019-08-29 20:04 | Inpatient (IN) | payer SELFPAY ==
[2019-08-29 20:42] LABS: #Monocytes 0.7 thou/uL (0.11-0.59); #Neutrophils 4.3 thou/uL (1.40-6.50); %Basophils 0.6 % (0.0-1.0); %Eosinophils 0.4 % (0.0-10.0); %Lymphocytes 16.8 % (21.0-51.0); %Monocytes 11.2 % (0.0-10.0); Hemoglobin 13.3 g/dL (12.0-16.0); Mean Corpuscular HGB CONC 34.7 g/dL (32.0-36.0); Mean Corpuscular Hemoglobin 32.9 pg (27.0-31.0); Mean Corpuscular Volume 94.9 fL (78.0-98.0); Mean Platelet Volume 7.2 fL (7.4-10.4); Platelet Count 210 thou/uL (130-400); RBC Distribution Width 12.3 % (11.5-14.5); Red Blood Cell (RBC) Count 4.03 mill/uL (4.20-5.40)
[2019-08-29 20:54] LABS: ALT (SGPT) 8 U/L (8-55); AST (SGOT) 26 U/L (5-34); Albumin 4.2 g/dL (3.5-5.0); Alkaline Phosphatase 52 U/L (40-110); Anion Gap 14 mmol/L (10-20); BUN (Urea Nitrogen) 7 mg/dL (9.8-20.1); Bilirubin, Total 0.3 mg/dL (0.2-1.2); Calc. Creatinine Clearance 0 mL/min (70-130); Calcium 8.9 mg/dL (7.8-10.44); Carbon Dioxide 22 mmol/L (22-29); Chloride 101 mmol/L (98-107); Estimated GFR-MDRD 81; Globulin 3.6 g/dL (2.4-3.5); Glucose 130 mg/dL (70-105); Potassium 3.2 mmol/L (3.5-5.1); Protein, Total 7.8 g/dL (6.0-8.3); Sodium 134 mmol/L (136-145)
--- NOTE | 2019-08-29 20:54 | CT ---
Exam: CT brain PROVIDED CLINICAL HISTORY: Dizziness COMPARISON: None FINDINGS: The ventricular system is normal in size and morphology. No evidence for intracranial hemorrhage or mass effect. The extracranial soft tissues and osseous structures demonstrate no evidence for an acute abnormality. IMPRESSION: No evidence for intracranial hemorrhage or mass effect.
[2019-08-29] MEDS ORDERED: Ondansetron PF 4 MG/2 ML Vial ONE (20:55)
[2019-08-29] MEDS ORDERED: cefTRIAXone\\ROCEPHIN 2 GM VIAL ONE (20:55)
[2019-08-29] MEDS ORDERED: methylPREDNISolone Sod Succ/PF 125 MG/2 ML VIAL ONE (20:55)
--- NOTE | 2019-08-29 20:58 | RAD ---
EXAM: Portable chest PROVIDED CLINICAL HISTORY: Shortness of breath COMPARISON: 01/31/2019 FINDINGS: Cardiac and mediastinal silhouette is within normal limits. No focal consolidation, pleural fluid or pneumothorax evident. Chronic obstructive changes are redemonstrated. IMPRESSION: No evidence for an acute cardiopulmonary process.
[2019-08-29 21:46] LABS: Bacteria/HPF None Seen HPF (None Seen); Bilirubin Negative (Negative); Blood, Urine 1+ (Negative); Clarity Clear (Clear); Glucose, Urine (Dipstick) Normal (Negative); Leukocyte 250 Leu/uL (Negative); Nitrite Negative (Negative); Protein, Urine (Dipstick) 10 mg/dL (Neg-Trace); RBC/HPF 0-3 HPF (0-3); Urobilinogen Normal mg/dL (Less than 2); WBC/HPF 0-3 HPF (0-3)
[2019-08-29] MEDS ORDERED: Acetaminophen 500 MG TAB ONE (22:11)
[2019-08-29 22:58] LABS: Amphetamine Not Detected (NotDetected); Barbiturates Screen Not Detected (NotDetected); Benzodiazepine Screen Not Detected (NotDetected); Cocaine Metabolite Screen Detected (NotDetected); Medtox Control Line Valid? VALID (VALID); Medtox Reader # READER 4; Methadone Not Detected (NotDetected); Methamphetamine Not Detected (NotDetected); Opiate Screen Detected (NotDetected); Oxycodone Screen Not Detected (NotDetected); Phencyclidine (PCP) Not Detected (NotDetected); THC/Cannabinoid Screen Not Detected (NotDetected); Tricyclic Screen Not Detected (NotDetected)
[2019-08-30] MEDS ORDERED: Magnesium 2 GM/50 ML BAG (IN WATER) ONE (01:00)
[2019-08-30] MEDS ORDERED: Oseltamivir 75 MG CAP PO SCH (01:30)
[2019-08-30] MEDS ORDERED: Guaifenesin DM 100-10/5 ML UDCUP PO PRN (02:09)
[2019-08-30] MEDS ORDERED: Calcium Carbonate 500 MG ChewTAB PO PRN (02:09)
[2019-08-30] MEDS ORDERED: Ondansetron ODT 4 MG TAB PO PRN ×2 (02:09→07:37)
[2019-08-30] MEDS ORDERED: Acetaminophen 325 MG TAB PO PRN (02:09)
--- NOTE | 2019-08-30 02:09 | PDOC.FPRHP ---
- History of Present Illness Chief Complaint: SOB History of Present Illness: 58 y/o smoker female with a pmhx of asthma, COPD, presents with cough and SOB for X1 day. 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 C/o feeling very LH while walking today and passing out. She states she lost consciousness for a little while and remembers waking up on the floor. Denies any injuries from fall. increased cough, sputum production and SOB. Pt has been increasing her nebulizer treatments to every 4 hours since the SOB onset yesterday, without relief. C/o KAPOOR. Denies CP, edema, diarrhea, abd pain. C/o palpitations, PND, 2 pillow orthopnea, N/V. ED course: Head CT neg for acute findings. CXR no acute findings Flu A Positive given first dose of tamiflu and IVF's. Given rocephin before flu test resulted. - Allergies/Adverse Reactions Allergies Allergy/AdvReac Type Severity Reaction Status Date / Time sumatriptan [From Imitrex] Allergy Mild Hives Verified 05/21/18 23:20 cucumber Allergy Hives Verified 05/23/18 12:58 - Home Medications Medication Instructions Recorded Confirmed Type Ipratropium/Albuterol Sulfate 3 ml INH Q6H PRN #0 05/25/18 08/30/19 Rx [DuoNeb] Albuterol Sulfate HFA (OR) 2 puff INH Q4H #1 inh 10/31/18 08/30/19 Rx [Proventil Hfa (or)] - History PMHx: asthma, COPD PSHx: hysterectomy, appendectomy, X2 c-sections, breast lumpectomy, thyroidectomy FHx: non-contributory Social: smokes 1-5 cigarettes daily for 45 years. admits to drinking 1-2 beers daily States she has not used illicit drugs since early 2018, however UDS + for opioids and cocaine. - Review of Systems General: reports: fever/chills, night sweats, fatigue Eyes: reports: vision changes (yellow floaters). denies: eye pain ENT: reports: nasal congestion, rhinorrhea Respiratory: reports: cough, congestion, shortness of breath, exercise intolerance Cardiovascular: reports: palpitation, edema, paroxysmal nocturnal dyspnea, orthopnea. denies: chest pain Gastrointestinal: reports: nausea, vomiting. denies: diarrhea, constipation, abdominal pain Genitourinary: denies: dysuria Skin: denies: rashes, lesions Musculoskeletal: reports: pain (joint aches). denies: swelling Neurological: reports: syncope (from lightheadedness) - Vital signs BP: 88/55 HR: 86 RR: 93 Tmax: 97.6 Pox: 93% on 1L NC Wt: 47 kg - Physical Exam Constitutional: NAD, awake, alert and oriented, other (very thin) HEENT: normocephalic and atraumatic, PERRLA, EOMI, conjunctiva clear, no scleral icterus, grossly normal vision, grossly normal hearing, MMM, oropharynx clear Neck: supple, FROM, trachea midline, no JVD -Neck: cervical LAD Chest: no-tender to palpation, no lesions Heart: RRR, normal S1/S2, no murmurs/rubs/gallops, pulses present, no edema Lungs: CTAB, no respiratory distress, good air movement, no rales/rhonchi, no wheezing, no retractions Abdomen: soft, non-tender, bowel sounds present, no masses/distention, no hernias Musculoskeletal: normal structure, normal tone, ROM grossly normal Neurological: no focal deficit, CN II-XII intact, normal sensation Skin: no rash/lesions, good turgor, capillary refill <2 seconds, no jaundice Heme/Lymphatic: no unusual bruising or bleeding, no purpura, no petechia, no LAD Psychiatric: normal mood and affect, good judgment and insight FMR H&P: Results - Labs Result Diagrams: 08/30/19 05:26 08/30/19 05:26 Lab results: WBC 6.0 thou/uL (4.8-10.8) 08/29/19 20:28 Hgb 13.3 g/dL (12.0-16.0) 08/29/19 20:28 Hct 38.2 % (36.0-47.0) 08/29/19 20:28 MCV 94.9 fL (78.0-98.0) 08/29/19 20:28 Plt Count 210 thou/uL (130-400) 08/29/19 20:28 Neutrophils % 71.0 % (42.0-75.0) 08/29/19 20:28 Sodium 134 mmol/L (136-145) L 08/29/19 20:28 Potassium 3.2 mmol/L (3.5-5.1) L 08/29/19 20:28 Chloride 101 mmol/L (98-107) 08/29/19 20:28 Carbon Dioxide 22 mmol/L (22-29) 08/29/19 20:28 BUN 7 mg/dL (9.8-20.1) L 08/29/19 20:28 Creatinine 0.87 mg/dL (0.6-1.1) 08/29/19 20:28 Glucose 130 mg/dL (70-105) H 08/29/19 20:28 Lactic Acid 1.6 mmol/L (0.5-2.2) 08/29/19 20:42 Calcium 8.9 mg/dL (7.8-10.44) 08/29/19 20:28 Total Bilirubin 0.3 mg/dL (0.2-1.2) 08/29/19 20: AST 26 U/L (5-34) 08/29/19 20:28 ALT 8 U/L (8-55) 08/29/19 20:28 Alkaline Phosphatase 52 U/L (40-110) 08/29/19 20:28 Serum Total Protein 7.8 g/dL (6.0-8.3) 08/29/19 20: Albumin 4.2 g/dL (3.5-5.0) 08/29/19 20:28 Urine Ketones Negative mg/dL (Negative) 08/29/19 21: Urine Blood 1+ (Negative) A 08/29/19: Urine Nitrite Negative (Negative) 08/29/19 21:23 Ur Leukocyte Esterase 250 Kelly/uL (Negative) A 08/29/19 21:23 Urine RBC 0-3 HPF (0-3) 08/29/19 21: Urine WBC 0-3 HPF (0-3) 08/29/19 21:23 Ur Squamous Epith Cells 4-6 HPF (0-3) A 08/29/19 21: Urine Bacteria None Seen HPF (None Seen) 08/29/19 21:23 FMR H&P: A/P - Problem List (1) COPD with exacerbation Current Visit: Yes Status: Acute Code(s): J44.1 - CHRONIC OBSTRUCTIVE PULMONARY DISEASE W (ACUTE) EXACERBATION (2) Influenza A Current Visit: Yes Status: Acute Code(s): J10.1 - FLU DUE TO OTH IDENT INFLUENZA VIRUS W OTH RESP MANIFEST (3) Polysubstance abuse Current Visit: Yes Status: Acute Code(s): F19.10 - OTHER PSYCHOACTIVE SUBSTANCE ABUSE, UNCOMPLICATED (4) Acute respiratory failure with hypoxia Current Visit: No Status: Acute Code(s): J96.01 - ACUTE RESPIRATORY FAILURE WITH HYPOXIA Comment: Continue oxygen, steroids, bronchodilators and antibiotics. (5) Hypokalemia Current Visit: No Status: Acute Code(s): E87.6 - HYPOKALEMIA Comment: replace potassium - Plan 58 y/o F admitted to medical inpatient for acute hypoxic respiratory failure with COPD exacerbation 2/2 influenza A. 1. acute hypoxic respiratory failure - Mid 80's-low 90's O2 saturation - 92% on 1 L NC. Will try and wean O2 today. 2. COPD exacerbation 2/2 influenza A - Flu A positive - started 40 prednisone 40 mg daily for 5 days - started tamiflu 75 mg BID for 5 days - Duonebs Q4H and mucinex PRN - Droplet precautions 3. Syncope - Most likely 2/2 lightheadedness 2/2 influenza - Will treat flu and monitor for improvement in LH symptoms. 4. Polysubstance abuse - Positive opioids and cocaine on UDS - Pt denies any current drug use, states her last drug use was in early 2019. 5. Tobacco use - smoking cessation counseling - ordered nicotine patch. 6. Hx of Asthma - pt takes albuterol inhaer at home and duonebs. - continue duoneb treatments with albuterol PRN. 7. Hypokalemia - replaced K - Repeat K level in AM. Replace accordingly. Code status: full code diet: regular DVT ppx: SCD's Dispo: stable, >2 hospital night stay in patient. FMR H&P: Upper Level - Plan Date/Time: 08/30/19 0207 IJuan MD, have evaluated this patient and agree with findings/ plan as outlined by internet marketer resident. Pertinent changes/additions are listed here. 1. Influenza A - Tamiflu - Droplet precautions - Supportive Care as needed 2. Acute Hypoxic Respiratory Failure - Likely secondary to above and COPD - Wean O2 as tolerated 3. COPD exacerbation - Steroids, duonebs - Supplemental O2 as needed - Likely needs an increase in regimen as outpatient 4. Polysubstance abuse - No use per patient since early 2018 - UDS on admission opiate and cocaine positive All other chronic conditions reviewed and medications to be restarted as appropriate. CODE STATUS: FULL CODE PCP: JAYSON NELSON Disposition: Stable, will admit to inpatient service for further evaluation and management. Addendum - Attending - Attending Attestation Date/Time: 08/30/19 5549 I personally evaluated the patient and discussed the management with Dr. Moon/ Nicolle I agree with the History, Examination, Assessment and Plan documented above with any addition or exceptions noted below.
[2019-08-30] MEDS ORDERED: Potassium Chloride 20 MEQ TAB PO SCH (02:30)
[2019-08-30] MEDS: Nicotine 14 MG PATCH TD SCH (03:52)
[2019-08-30 05:19] VITALS: BMI 18.6
[2019-08-30 05:43] LABS: #Lymphocytes 0.4 thou/uL (1.20-3.40); #Monocytes 0.1 thou/uL (0.11-0.59); #Neutrophils 3.7 thou/uL (1.40-6.50); %Eosinophils 0.1 % (0.0-10.0); %Lymphocytes 9.6 % (21.0-51.0); %Monocytes 2.4 % (0.0-10.0); %Neutrophils 87.9 % (42.0-75.0); Hemoglobin 12.4 g/dL (12.0-16.0); Mean Corpuscular HGB CONC 34.3 g/dL (32.0-36.0); Mean Corpuscular Hemoglobin 32.9 pg (27.0-31.0); Mean Platelet Volume 7.3 fL (7.4-10.4); Platelet Count 207 thou/uL (130-400); RBC Distribution Width 12.4 % (11.5-14.5); Red Blood Cell (RBC) Count 3.77 mill/uL (4.20-5.40); White Blood Cell (WBC) Count 4.2 thou/uL (4.8-10.8)
[2019-08-30] MEDS ORDERED: Albuterol Sulfate 2.5 mg/3 ml Neb NEB PRN (06:52)
[2019-08-30] MEDS ORDERED: Ondansetron ODT 8 MG TAB SL PRN (07:31)
[2019-08-30 07:44] LABS: ALT (SGPT) 8 U/L (8-55); AST (SGOT) 20 U/L (5-34); Albumin 3.5 g/dL (3.5-5.0); Alkaline Phosphatase 46 U/L (40-110); Anion Gap 12 mmol/L (10-20); BUN (Urea Nitrogen) 8 mg/dL (9.8-20.1); Bilirubin, Total Less than 0.2 mg/dL (0.2-1.2); Calc. Creatinine Clearance 62 mL/min (70-130); Calcium 7.6 mg/dL (7.8-10.44); Carbon Dioxide 19 mmol/L (22-29); Chloride 108 mmol/L (98-107); Estimated GFR-MDRD Greater than 90; Globulin 3.3 g/dL (2.4-3.5); Glucose 210 mg/dL (70-105); Potassium 3.6 mmol/L (3.5-5.1); Protein, Total 6.8 g/dL (6.0-8.3); Sodium 135 mmol/L (136-145)
[2019-08-30] MEDS: predniSONE 20 MG TAB PO SCH (08:38)
[2019-08-30] MEDS: Oseltamivir 75 MG CAP PO SCH ×2 (08:39→21:02)
[2019-08-30] MEDS: Benzonatate 100 MG CAP PO PRN ×2 (11:12→21:02)
[2019-08-30 13:54] LABS: Syphilis Antibody Nonreactive (Nonreactive); Syphilis Antibody Index 0.36 S/CO (<1.00 Non-Reactive)
[2019-08-30 13:55] LABS: HIV (1/2) Antibody/Antigen Non-Reactive (NonReactive); HIV 1/2 INDEX 0.14 S/CO (<1.00); Hep C IgG Ab Non-Reactive (NonReactive); Hep C Index 0.18 S/CO (0-0.79)
[2019-08-31] MEDS: Nicotine 14 MG PATCH TD SCH (05:10)
[2019-08-31 05:46] LABS: #Lymphocytes 1.9 thou/uL (1.20-3.40); #Monocytes 0.7 thou/uL (0.11-0.59); #Neutrophils 5.9 thou/uL (1.40-6.50); %Eosinophils 0.2 % (0.0-10.0); %Lymphocytes 22.3 % (21.0-51.0); %Monocytes 7.9 % (0.0-10.0); %Neutrophils 69.7 % (42.0-75.0); Hemoglobin 12.6 g/dL (12.0-16.0); Mean Corpuscular Hemoglobin 32.7 pg (27.0-31.0); Mean Corpuscular Volume 96.1 fL (78.0-98.0); Mean Platelet Volume 7.4 fL (7.4-10.4); Platelet Count 217 thou/uL (130-400); RBC Distribution Width 12.3 % (11.5-14.5); Red Blood Cell (RBC) Count 3.85 mill/uL (4.20-5.40); White Blood Cell (WBC) Count 8.5 thou/uL (4.8-10.8)
[2019-08-31 06:13] LABS: ALT (SGPT) 8 U/L (8-55); AST (SGOT) 21 U/L (5-34); Albumin 3.7 g/dL (3.5-5.0); Alkaline Phosphatase 47 U/L (40-110); Anion Gap 10 mmol/L (10-20); BUN (Urea Nitrogen) 5 mg/dL (9.8-20.1); Bilirubin, Total 0.2 mg/dL (0.2-1.2); Calc. Creatinine Clearance 66 mL/min (70-130); Calcium 8.2 mg/dL (7.8-10.44); Carbon Dioxide 25 mmol/L (22-29); Chloride 109 mmol/L (98-107); Estimated GFR-MDRD Greater than 90; Globulin 3.3 g/dL (2.4-3.5); Glucose 118 mg/dL (70-105); Potassium 3.5 mmol/L (3.5-5.1); Sodium 140 mmol/L (136-145)
--- NOTE | 2019-08-31 06:14 | PDOC.FM ---
- Subjective Subjective: Patient doing very well this morning. Off oxygen, reports she feels ready to go home. - Objective Vital Signs & Weight: Vital Signs (12 hours) Temp Pulse Resp BP Pulse Ox 08/31/19 02:15 12 08/30/19 22:25 102 H 16 90 L 08/30/19 20:45 98.3 F 102 H 20 116/70 90 L 08/30/19 20:00 91 L 08/30/19 19:12 87 12 95 Weight Admit Weight 47.718 kg Weight 47.718 kg Result Diagrams: 08/31/19 05:25 08/31/19 05:25 Phys Exam - Physical Examination Constitutional: NAD HEENT: moist MMs, sclera anicteric Neck: no nodes, no JVD rhonchi ANDREZ, RML Cardiovascular: RRR, no significant murmur Gastrointestinal: soft, non-tender Musculoskeletal: no edema, pulses present Neurological: non-focal, moves all 4 limbs Lymphatic: no nodes Psychiatric: normal affect, A&O x 3 Skin: no rash, normal turgor Dx/Plan (1) Acute respiratory failure with hypoxia Code(s): J96.01 - ACUTE RESPIRATORY FAILURE WITH HYPOXIA Status: Acute (2) COPD with exacerbation Code(s): J44.1 - CHRONIC OBSTRUCTIVE PULMONARY DISEASE W (ACUTE) EXACERBATION Status: Acute (3) Influenza A Code(s): J10.1 - FLU DUE TO OTH IDENT INFLUENZA VIRUS W OTH RESP MANIFEST Status: Acute (4) Polysubstance abuse Code(s): F19.10 - OTHER PSYCHOACTIVE SUBSTANCE ABUSE, UNCOMPLICATED Status: Acute (5) Hypokalemia Code(s): E87.6 - HYPOKALEMIA Status: Acute (6) Tobacco abuse Code(s): Z72.0 - TOBACCO USE Status: Chronic - Plan Plan: 58F admitted to medical inpatient for acute hypoxic respiratory failure with COPD exacerbation 2/2 influenza A. #acute hypoxic respiratory failure, resolved - 90-91% on RA #COPD exacerbation 2/2 influenza A - Flu A positive - started on 40 prednisone 40 mg daily for 5 days, continue - started on tamiflu 75 mg BID for 5 days, continue - Duonebs Q4H and mucinex PRN - Droplet precautions #Syncope - Most likely 2/2 lightheadedness 2/2 influenza #Polysubstance abuse - Positive opioids and cocaine on UDS - Pt denies any current drug use, states her last drug use was in early 2019. #Tobacco use - smoking cessation counseling - nicotine patch. #Hx of Asthma - pt takes albuterol inhaler at home and duonebs; reports she needs a refill of her albuterol inhaler - continue duoneb treatments with albuterol PRN. #Hypokalemia, resolved - replaced K Code status: full code diet: regular DVT ppx: SCD's Dispo: stable, will continue to monitor oxygen saturation with possible d/c later today
[2019-08-31] MEDS: predniSONE 20 MG TAB PO SCH (09:11)
[2019-08-31] MEDS: Oseltamivir 75 MG CAP PO SCH (09:12)
[2019-08-31 13:13] VITALS: BP 120/75; TEMP 99.1
--- NOTE | 2019-09-01 02:37 | DIS ---
DATE OF ADMISSION: 08/30/2019 DATE OF DISCHARGE: 08/31/2019 ADMITTING RESIDENT: Mariluz Israel DO ADMITTING ATTENDING: Heath Juarez MD DISCHARGE RESIDENT: Elizabeth Gay MD DISCHARGE ATTENDING: Christophe Zazueta MD CONSULTATIONS: None. PROCEDURES: None. IMAGIN. Chest x-ray: No evidence for acute cardiopulmonary process. 2. Brain CT: No evidence for intracranial hemorrhage or mass effect. PRIMARY DIAGNOSES: 1. Acute hypoxic respiratory failure. 2. Chronic obstructive pulmonary disease exacerbation due to influenza A. 3. Syncope. 4. Hypokalemia. SECONDARY DIAGNOSES: Polysubstance abuse, tobacco abuse, history of asthma. DISCHARGE MEDICATIONS: 1. Two puffs inhaled albuterol sulfate q.4 hours p.r.n. 2. Two puffs Symbicort inhaled b.i.d. 3. One spacer. 4. DuoNeb 3 mL inhaled q.6 hours p.r.n. 5. Tamiflu 75 mg p.o. b.i.d. x7 caps. 6. Prednisone 40 mg p.o. q.a.m. x3 tabs. DISCONTINUED MEDICATIONS: 1. Tylenol p.r.n. 2. Tessalon Perles. 3. Tums. 4. Mucinex. 5. Nicotine patch. 6. Zofran p.r.n. HISTORY OF PRESENT ILLNESS/HOSPITAL COURSE: The patient is a 58-year-old female with a history of COPD, asthma, substance abuse, tobacco abuse who presented to the ED with cough and shortness of breath x1 day. 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 Earlier in the day before admission, she was feeling lightheaded and passed out. She reported loss of consciousness and remembers waking up from the floor. She reported increased cough, sputum production and shortness of breath that had required increasing nebulizer treatments to every 4 hours. In the ED, she was found to be positive for influenza A and having a new oxygen requirement. She was given a dose of Rocephin and admitted to the hospital for acute hypoxic respiratory failure, COPD exacerbation, and influenza A. She was put on oxygen via nasal cannula and started on prednisone, Tamiflu, DuoNebs and albuterol. She was found to have UDS positive for cocaine and opiates. It should be noted that the patient did have hypokalemia on admission with a potassium of 3.2 that was repleted and was normal on the day of discharge. On the day of discharge, the patient was found to be in stable condition. She had not been febrile since admission and her oxygen saturation was stable on room air. She was counseled on the continued use of Tamiflu and cortisone and requested that she have her albuterol prescription refilled for home albuterol. She was also provided a script for Symbicort for her asthma and to hopefully have better control of her symptoms. DISPOSITION: Stable. DISCHARGE INSTRUCTIONS: 1. Location: Home. 2. Diet: Regular. 3. Activities: As tolerated. 4. Followup: With PCP within 7 days. Job ID: [id number] KATALINA
--- NOTE | 2019-09-01 07:29 | PRG ---
DATE OF SERVICE: 08/31/2019 ADDENDUM: This is an addendum to the note of Dr. Elizabeth Gay. I have discussed the case with Dr. Gay and agree with her assessment and plan. Ms. Boston is a very pleasant 58-year-old lady, who was admitted with a "COPD" exacerbation. She was treated with DuoNebs as well as steroids. She looks and feels much better. In discussing her history with her, she states she has smoked most of her adult life, but only 1 to 5 cigarettes per day. She also has a history of asthma and there may be more of an asthma component to this exacerbation and COPD. In the event, she is much better with her DuoNebs and steroids and will be discharged later today. I would suggest that we with steroids such as Symbicort. Job ID: [id number]
== END 2019-08-31 16:00 | disposition home or self-care (01) | DRG 193 ==
LOC: ERS 20:04 → T4-A 08-30 01:55
PROVIDERS: ADMIT Family Medicine; ATTEND Family Medicine
DX: J10.1 Influenza due to other identified influenza virus with other respiratory manifestations (principal); J96.01 Acute respiratory failure with hypoxia; J44.1 Chronic obstructive pulmonary disease with (acute) exacerbation; E87.6 Hypokalemia; F19.10 Other psychoactive substance abuse, uncomplicated; J45.909 Unspecified asthma, uncomplicated; F17.210 Nicotine dependence, cigarettes, uncomplicated; Z90.49 Acquired absence of other specified parts of digestive tract; Z90.710 Acquired absence of both cervix and uterus
CPT/HCPCS: 36415; 70450; 71045; 80053; 80306; 81003; 81015; 83605; 84484; 85025; 86780; 86803; 87040; 87086; 87389; 87804; 93005; 94640; 96361; 96365; 96367; 96374; 96375; J0696; J2405; J2930; J3475; J7512; J7620; Q0162